=== PATIENT | female | born 2005 | race Caucasian/White ===

== ENCOUNTER 2023-01-30 04:58 | Inpatient (IN) | payer OTHER ==
[2023-01-30] MEDS ORDERED: Methylergonovine 0.2 MG/1 ML Amp IM PRN (05:45)
[2023-01-30] MEDS ORDERED: Lidocaine 1% 50 ML MDV INJECT PRN (05:45)
[2023-01-30] MEDS ORDERED: Misoprostol 200 MCG Tab PO PRN (05:45)
[2023-01-30] MEDS ORDERED: Butorphanol 1 MG/ML SDV IVPUSH PRN (05:45)
[2023-01-30] MEDS ORDERED: Sodium Chloride 0.9% 10 ML Syringe FLUSH PRN (05:45)
[2023-01-30] MEDS ORDERED: Water For Irrigation,Sterile 1,000 ML Container IRR PRN (05:45)
[2023-01-30] MEDS ORDERED: Carboprost Tromethamine 250 MCG/1 ML Amp IM PRN (05:45)
[2023-01-30] MEDS ORDERED: Tranexamic Acid 1,000 MG in Sodium Chloride 0.9% 100 ML IV PRN (05:45)
[2023-01-30] MEDS ORDERED: Terbutaline 1 MG/ML SDV SUBCUT PRN (05:45)
[2023-01-30] MEDS ORDERED: Oxytocin/0.9 % Sodium Chloride 30 UNIT/500 ML BAG IV SCH ×2 (05:45)
[2023-01-30] MEDS ORDERED: Sodium Chloride 0.9% 2.5 ML Syringe FLUSH PRN (05:45)
[2023-01-30] MEDS ORDERED: Sodium Chloride 0.9% 20 ML SDV IV PRN (05:45)
[2023-01-30] MEDS: Lactated Ringers 1,000 ML IV SCH ×4 (06:11→16:58)
[2023-01-30] MEDS ORDERED: Phenylephrine HCl 0.5 MG/5 ML AMP ONE (10:08)
[2023-01-30] MEDS ORDERED: Dexmedetomidine 200 MCG/2 ML SDV ONE (10:08)
[2023-01-30] MEDS ORDERED: Ropivacaine/PF 400 MG/200 ML PCA ONE (10:08)
[2023-01-30] MEDS ORDERED: Phenylephrine HCl 0.5 MG/5 ML AMP IVPUSH PRN ×2 (10:32→10:33)
[2023-01-30] MEDS ORDERED: ePHEDrine 50 MG/ML SDV IVPUSH PRN ×4 (10:32→10:33)
[2023-01-30] MEDS ORDERED: Ropivacaine HCl/PF 400 MG in Premix Bag 1 BAG EPIDUR SCH ×4 (10:45)
[2023-01-30] MEDS ORDERED: Witch Hazel Medicated Pads 40/Jar TOP PRN (18:42)
[2023-01-30] MEDS ORDERED: Acetaminophen 500 MG Tab PO PRN ×2 (18:42)
[2023-01-30] MEDS ORDERED: Bisacodyl 10 MG Supp RECTAL PRN (18:42)
[2023-01-30] MEDS ORDERED: oxyCODONE 5 MG Tab PO PRN (18:42)
[2023-01-30] MEDS ORDERED: Lanolin 100% Cream 7 GM Tube TOP PRN (18:42)
[2023-01-30] MEDS ORDERED: Docusate Sodium 100 MG Cap PO PRN (18:42)
[2023-01-30] MEDS ORDERED: Benzocaine/Menthol 20%-0.5% Spray 78 GM Cannister TOP PRN (18:42)
[2023-01-30] MEDS ORDERED: Ibuprofen 400 MG Tab PO PRN (18:42)
[2023-01-30] MEDS: Ibuprofen 800 MG Tab PO PRN (21:30)
[2023-01-31] MEDS: Ibuprofen 800 MG Tab PO PRN ×2 (08:32→21:51)
[2023-01-31] MEDS ORDERED: Sodium Ferric Gluconate Cmplex 125 MG in Sodium Chloride 0.9% 100 ML IV ONE (13:00)
== END 2023-02-01 11:44 | disposition home or self-care (01) | DRG 807 ==
LOC: MW.OBCHECK 04:58 → MW.OB 05:01 → MW.OBCHECK 05:45 → OBSVTOIN 18:11 → MW.OB 21:38
PROVIDERS: ADMIT Obstetrics & Gynecology; ATTEND Obstetrics & Gynecology
PROC: 10E0XZZ Delivery of Products of Conception, External Approach (ICD-10-PCS; principal; 2023-01-30)
PROC: 0HQ9XZZ Repair Perineum Skin, External Approach (ICD-10-PCS; 2023-01-30)
PROC: 3E0R3BZ Introduction of Anesthetic Agent into Spinal Canal, Percutaneous Approach (ICD-10-PCS; 2023-01-30)
PROC: 00HU33Z Insertion of Infusion Device into Spinal Canal, Percutaneous Approach (ICD-10-PCS; 2023-01-30)
PROC: 3E033VJ Introduction of Other Hormone into Peripheral Vein, Percutaneous Approach (ICD-10-PCS; 2023-01-30)
PROC: 10907ZC Drainage of Amniotic Fluid, Therapeutic from Products of Conception, Via Natural or Artificial Opening (ICD-10-PCS; 2023-01-30)
DX: O12.14 Gestational proteinuria, complicating childbirth (principal); Z37.0 Single live birth; O70.0 First degree perineal laceration during delivery; O99.02 Anemia complicating childbirth; O77.0 Labor and delivery complicated by meconium in amniotic fluid; D64.9 Anemia, unspecified; Z90.49 Acquired absence of other specified parts of digestive tract; Z56.0 Unemployment, unspecified; Z3A.39 39 weeks gestation of pregnancy
CPT/HCPCS: 01967; 36415; 51702; 59025; 59409; 82803; 84112; 85014; 85018; 85027; 86592; 86850; 86900; 86901; A9270-GY; J2370; J2590; J2795; J2916; J3490; J7120

== ENCOUNTER 2023-03-04 07:56 | Day surgery (SDC) | payer OTHER ==
[~2023-03-04 07:56] MED LIST: Lactated Ringers 1,000 ML IV SCH; Sodium Chloride 0.9% 10 ML Syringe FLUSH PRN; Sodium Chloride 0.9% 2.5 ML Syringe FLUSH PRN; Sodium Chloride 0.9% 20 ML SDV IV PRN; cefOXitin 2 GM in Sodium Chloride 0.9% 50 ML IV ONE
[2023-03-04] MEDS ORDERED: HYDROmorphone 1 MG/ML Syringe IVPUSH PRN (08:18)
[2023-03-04] MEDS ORDERED: fentaNYL 50 MCG/ML SDV IVPUSH PRN (08:18)
[2023-03-04] MEDS ORDERED: Ondansetron 4 MG/2 ML SDV IVPUSH PRN (08:18)
[2023-03-04] MEDS ORDERED: droPERidol 5 MG/2 ML SDV IVPUSH PRN (08:18)
[2023-03-04] MEDS ORDERED: Naloxone 0.4 MG/ML SDV IVPUSH PRN (08:18)
[2023-03-04] MEDS ORDERED: Morphine 2 MG/ML SYRINGE IVPUSH PRN (08:18)
[2023-03-04] MEDS ORDERED: Albuterol 0.083% 2.5 MG/3 ML Neb Soln NEB PRN (08:18)
[2023-03-04] MEDS ORDERED: Metoclopramide 10 MG/2 ML SDV IVPUSH PRN (08:18)
[2023-03-04] MEDS ORDERED: Lidocaine 1% 5 ML VIAL ONE (09:34)
[2023-03-04] MEDS ORDERED: Ondansetron 4 MG/2 ML SDV ONE (09:34)
[2023-03-04] MEDS ORDERED: Propofol 200 MG/20 ML SDV ONE ×2 (09:34→09:35)
[2023-03-04] MEDS ORDERED: Dexmedetomidine 200 MCG/2 ML SDV ONE (09:34)
[2023-03-04] MEDS ORDERED: Bupivacaine 0.5% 10 ML SDV ONE (09:37)
[2023-03-04] MEDS ORDERED: Lidocaine 1% 20 ML MDV ONE (09:38)
[2023-03-04] MEDS ORDERED: fentaNYL 100 MCG/2 ML SDV ONE (10:02)
[2023-03-04] MEDS ORDERED: Magnesium Sulfate (4.06 MEQ/ML) 5 GM/10 ML SDV ONE (10:05)
[2023-03-04] MEDS ORDERED: cefOXitin 1 GM Vial ONE (10:05)
[2023-03-04] MEDS ORDERED: ePHEDrine 50 MG/ML SDV ONE (10:20)
== END 2023-03-04 12:09 | disposition home or self-care (01) ==
LOC: MW.SDS 07:56
PROVIDERS: ATTEND Surgery
DX: B08.1 Molluscum contagiosum (principal); L05.01 Pilonidal cyst with abscess; L73.9 Follicular disorder, unspecified; Z90.49 Acquired absence of other specified parts of digestive tract; Z79.899 Other long term (current) drug therapy
CPT/HCPCS: 11771; 81025; J0694; J2405; J2704; J3010; J3475; J3490; J7120